=== PATIENT | female | born 1955 | race Caucasian/White ===

== ENCOUNTER 2019-04-26 13:26 | Emergency (ER) | payer OTHER ==
[~2019-04-26] VITALS: Ht 162.6 cm; Wt 74.8 kg
[~2019-04-26 13:26] MED LIST: CYAN10006 IM; GLAT20KI3 SQ; MULT-1045 PO
[2019-04-26 14:03] VITALS: BP 114/65
--- NOTE | 2019-04-26 14:04 | NUR ---
Patient discharged to home in stable conditon. Written and verbal after care instructions given. Patient verbalizes understanding of instructions.
== END 2019-04-26 14:05 | disposition home or self-care (01) ==
LOC: ER 13:27
DX: H10.33 Unspecified acute conjunctivitis, bilateral (principal); J04.0 Acute laryngitis; K21.9 Gastro-esophageal reflux disease without esophagitis; Z88.5 Allergy status to narcotic agent; Z79.899 Other long term (current) drug therapy
CPT/HCPCS: A4663

== ENCOUNTER 2019-08-02 08:11 | Emergency (ER) | payer OTHER ==
[~2019-08-02] VITALS: Ht 157.5 cm; Wt 74.8 kg
[2019-08-02 09:25] LABS: BASOPHILS # (AUTO) 0.1 K/uL (0.0-8.0); BASOPHILS % (AUTO) 1.5 % (0.0-2.0); EOSINOPHILS # (AUTO) 0.2 K/uL (0.0-0.7); EOSINOPHILS % (AUTO) 3.5 % (0.0-7.0); HEMATOCRIT 29.8 % (31.2-41.9); HEMOGLOBIN 9.4 g/dL (10.9-14.3); LYMPHOCYTES # (AUTO) 1.2 K/uL (20.0-40.0); LYMPHOCYTES % (AUTO) 19.7 % (20.5-51.5); MEAN CORPUSCULAR HEMOGLOBIN 21.6 uug (24.7-32.8); MEAN CORPUSCULAR HGB CONC 31 g/dL (32.3-35.6); MEAN CORPUSCULAR VOLUME 68.8 fL (75.5-95.3); MONOCYTES # (AUTO) 0.5 K/uL (2.0-10.0); MONOCYTES % (AUTO) 8.7 % (0.0-11.0); NEUTROPHILS % (AUTO) 66.6 % (38.5-71.5); PLATELET COUNT (AUTO) 279 K/uL (179-408); RED BLOOD CELL COUNT(AUTO) 4.33 MIL/uL (3.63-4.92)
--- NOTE | 2019-08-02 09:30 | NUR ---
pt walked out side the er, to her car, waiting for lab result to come back. aware.
[2019-08-02 09:40] LABS: CREATININE 0.6 mg/dL (0.6-1.3); POTASSIUM 3.9 mmol/L (3.5-5.1)
[2019-08-02 09:46] LABS: BILIRUBIN,TOTAL 0.3 mg/dL (0.2-1.0); TOTAL PROTEIN, SERUM 7.3 g/dL (6.4-8.2)
[2019-08-02 09:58] LABS: EOSINOPHILS % (MANUAL) 2 % (0-8); LYMPHOCYTES % (MANUAL) 14 % (20-40); MONOCYTES % (MANUAL) 9 % (2-10); NEUTROPHILS % (MANUAL) 75 % (42-75)
[2019-08-02 10:07] LABS: THYROID STIMULATING HORMONE 0.312 mIU/mL (0.358-3.740)
--- NOTE | 2019-08-02 10:13 | NUR ---
pt came back to room.
--- NOTE | 2019-08-02 10:26 | NUR ---
Patient discharged to home in stable condition. Written and verbal after care instructions given. Patient verbalizes understanding of instructions. Stressed follow up or return to ER for worsening s/s.
== END 2019-08-02 10:27 | disposition home or self-care (01) ==
LOC: ER 08:11
DX: R21 Rash and other nonspecific skin eruption (principal); D64.9 Anemia, unspecified; R94.6 Abnormal results of thyroid function studies
CPT/HCPCS: 36415; 70030-TC; 84443; 85025; A4663

== ENCOUNTER 2019-08-25 10:05 | Emergency (ER) | payer OTHER ==
[~2019-08-25] VITALS: Ht 165.1 cm; Wt 72.6 kg
--- NOTE | 2019-08-25 10:52 | NUR ---
Patient ambulated with stable gait. A/Ox4. Patient came for c/o itching and rashes on her right upper extremity for a few days now. Patient denies taking any medications prior to arrival. No s/sx of any respiratory distress or laryngeal inflammation. Denies any sob.
[2019-08-25] MEDS ORDERED: diphenhydrAMINE 25 MG CAP PO ONE ×2 (10:56→11:00)
[2019-08-25 11:22] VITALS: BP 120/69
== END 2019-08-25 10:55 | disposition home or self-care (01) ==
LOC: ER 10:05
DX: T78.49XA Other allergy, initial encounter (principal); X58.XXXA Exposure to other specified factors, initial encounter; G35 Multiple sclerosis; Z98.84 Bariatric surgery status; K21.9 Gastro-esophageal reflux disease without esophagitis; Z87.892 Personal history of anaphylaxis; Z88.6 Allergy status to analgesic agent
CPT/HCPCS: 99282; Q0163; A4663

== ENCOUNTER 2019-10-04 10:26 | Emergency (ER) | payer OTHER ==
[~2019-10-04] VITALS: Ht 152.4 cm; Wt 72.6 kg
--- NOTE | 2019-10-04 10:49 | NUR ---
DR ROCK AT BEDSIDE FOR EVAL...
--- NOTE | 2019-10-04 11:36 | NUR ---
DC, RX AND FOLLOW UP INSTRUCTIONS GIVEN AND EXPLAINED TO PATIENT WHO STATES SHE UNDERSTANDS ALL INSTRUCITONS.
== END 2019-10-04 11:37 | disposition home or self-care (01) ==
LOC: ER 10:26
DX: L03.011 Cellulitis of right finger (principal); B35.1 Tinea unguium; G35 Multiple sclerosis; Z98.84 Bariatric surgery status; K21.9 Gastro-esophageal reflux disease without esophagitis; Z79.899 Other long term (current) drug therapy
CPT/HCPCS: A4663

== ENCOUNTER 2020-10-09 22:38 | Emergency (ER) | payer MEDICARE, OTHER ==
[~2020-10-09] VITALS: Ht 162.6 cm; Wt 67.6 kg
--- NOTE | 2020-10-09 22:48 | NUR ---
pt ambulated to ER with c/o skin rash noted on face, chest and bilateral arms. pt states shes been seen by real property evaluator and prescribed medications for it. A/O x4, no SOB or labored breathing. Afebrile. Denies any CP/pressure. No GI/Gu distress.
--- NOTE | 2020-10-09 22:50 | NUR ---
Dr. Hanna at bedside, MSE in progress.
[2020-10-09] MEDS ORDERED: PRED50TA PO (22:51)
[2020-10-09] MEDS ORDERED: DEXAMETHASONE SOD PHOSPHATE 4 MG INJ IM ONE (23:00)
[2020-10-09] MEDS ORDERED: DEXAMETHASONE SOD PHOSPHATE 10 MG INJ ONE (23:00)
--- NOTE | 2020-10-09 23:14 | NUR ---
Patient discharged to home in stable condition. A/O x4, no SOB or labored breathing. Denies any pain/discomfort at this time. Written and verbal after care instructions given. Patient verbalizes understanding of instructions. Stressed follow up or return to ER for worsening s/s. Steady gait.
[2020-10-09 23:15] VITALS: BP 136/89
== END 2020-10-09 23:15 | disposition home or self-care (01) ==
LOC: ER 22:39
DX: L50.0 Allergic urticaria (principal); G35 Multiple sclerosis; K21.9 Gastro-esophageal reflux disease without esophagitis; Z98.84 Bariatric surgery status
CPT/HCPCS: 96372; 99283; J1100; A4663

== ENCOUNTER 2020-10-11 15:05 | Emergency (ER) | payer MEDICARE, OTHER ==
[~2020-10-11] VITALS: Ht 165.1 cm; Wt 68.0 kg
[~2020-10-11 15:05] MED LIST changes: +PRED50TA PO
--- NOTE | 2020-10-11 15:32 | NUR ---
at bedside for assessment
[2020-10-11] MEDS ORDERED: diphenhydrAMINE 50 MG/1 ML VIAL ONE (15:45)
[2020-10-11 16:00] LABS: HEMATOCRIT 34.3 % (31.2-41.9); MEAN CORPUSCULAR HEMOGLOBIN 25.2 uug (24.7-32.8); MEAN CORPUSCULAR VOLUME 79.4 fL (75.5-95.3); PLATELET COUNT (AUTO) 236 K/uL (179-408)
[2020-10-11 16:04] LABS: CREATININE 0.7 mg/dL (0.6-1.3); POTASSIUM 4.2 mmol/L (3.5-5.1)
[2020-10-11 16:10] LABS: BILIRUBIN,DIRECT 0.1 mg/dL (0.0-0.2); BILIRUBIN,TOTAL 0.2 mg/dL (0.2-1.0); TOTAL PROTEIN, SERUM 6.8 g/dL (6.4-8.2)
--- NOTE | 2020-10-11 17:00 | NUR ---
Patient complaints of redness and itching to skin, skin redness barely noted
--- NOTE | 2020-10-11 17:50 | NUR ---
Patient discharged to home in stable condition. No signs of acute distress noted. took al belongings. Written and verbal after care instructions given. Patient verbalizes understanding of instructions. Stressed follow up or return to ER for worsening s/s.
[2020-10-11 17:51] VITALS: BP 110/68
== END 2020-10-11 17:52 | disposition home or self-care (01) ==
LOC: ER 15:05
DX: L53.9 Erythematous condition, unspecified (principal); G35 Multiple sclerosis; Z88.5 Allergy status to narcotic agent; Z79.899 Other long term (current) drug therapy
CPT/HCPCS: 36415; 85025; A4663; J1200

== ENCOUNTER 2022-11-06 16:07 | Emergency (ER) | payer MEDICARE, OTHER ==
[~2022-11-06] VITALS: Ht 165.1 cm; Wt 68.0 kg
[~2022-11-06 16:07] MED LIST changes: -PRED50TA PO
[2022-11-06] MEDS ORDERED: PANTOPRAZOLE SODIUM IV 40 MG in IV DEXTROSE 5% 100 ML IV ONE (16:15)
[2022-11-06] MEDS ORDERED: IV NORMAL SALINE 1000 ML BAG IV ONE (16:15)
[2022-11-06] MEDS ORDERED: ONDANSETRON 4 MG/2 ML VIAL IV ONE (16:15)
[2022-11-06] MEDS ORDERED: PANTOPRAZOLE SODIUM 40 MG VIAL ONE (16:17)
[2022-11-06] MEDS ORDERED: ONDANSETRON 4 MG/2 ML VIAL ONE (16:17)
[2022-11-06 17:16] LABS: BASOPHILS # (AUTO) 0.2 K/UL (0.0-0.2); BASOPHILS % (AUTO) 2.6 % (0.0-2.0); EOSINOPHILS % (AUTO) 0.4 % (0.0-7.0); HEMOGLOBIN 11.6 g/dL (10.9-14.3); LYMPHOCYTES # (AUTO) 0.3 K/uL (0.8-4.8); LYMPHOCYTES % (AUTO) 3.6 % (20.5-51.5); MEAN CORPUSCULAR HEMOGLOBIN 25.7 uug (24.7-32.8); MEAN CORPUSCULAR HGB CONC 31 g/dL (32.3-35.6); MEAN CORPUSCULAR VOLUME 82.1 fL (75.5-95.3); MONOCYTES % (AUTO) 0.6 % (0.0-11.0); NEUTROPHILS # (AUTO) 6.7 K/uL (1.8-8.9); NEUTROPHILS % (AUTO) 92.8 % (38.5-71.5); PLATELET COUNT (AUTO) 169 K/uL (179-408); RED BLOOD CELL COUNT(AUTO) 4.51 MIL/uL (3.63-4.92); RED CELL DISTRIBUTION WIDTH 18.4 % (12.3-17.7); WHITE BLOOD COUNT (AUTO) 7.2 K/uL (3.8-11.8)
[2022-11-06 17:27] LABS: CREATININE 0.9 mg/dL (0.6-1.3); POTASSIUM 3.9 mmol/L (3.5-5.1)
[2022-11-06 17:27] LABS: *OCCULT BLOOD STOOL NEGATIVE (NEGATIVE)
[2022-11-06 17:29] LABS: DIFFERENTIAL COMMENT 1
[2022-11-06 17:33] LABS: ALBUMIN 3.5 g/dL (3.4-5.0); BILIRUBIN,DIRECT 0.1 mg/dL (0.0-0.2); BILIRUBIN,TOTAL 0.4 mg/dL (0.2-1.0); TOTAL PROTEIN, SERUM 7.2 g/dL (6.4-8.2)
[2022-11-06] MEDS ORDERED: KETOROLAC TROMETHAMINE 30 MG INJ ONE (18:28)
[2022-11-06] MEDS ORDERED: KETOROLAC TROMETHAMINE 15 MG INJ IVP ONE (18:30)
[2022-11-06] MEDS ORDERED: CEFTRIAXONE /D5W 50ML IVPB **ER PYXIS IV ONE (18:43)
[2022-11-06] MEDS ORDERED: CEFTRIAXONE 1 G in IV DEXTROSE 5% 50 ML IV ONE (18:45)
[2022-11-06] MEDS ORDERED: IBUP-1955 PO (18:48)
[2022-11-06] MEDS ORDERED: ONDA4TAB5 PO (18:48)
[2022-11-06] MEDS ORDERED: CEPH500T PO (18:48)
[2022-11-06] MEDS ORDERED: TAMS-3 PO (18:48)
[2022-11-06 18:53] LABS: *BILIRUBIN,URIN NEGATIVE (NEGATIVE); *BLOOD, URINE 1+ (NEGATIVE); *CLARITY,URINE CLEAR (CLEAR); *COLOR,URINE YELLOW (YELLOW); *KETONES,URINE NEGATIVE (NEGATIVE); *PROTEIN,URINE NEGATIVE (NEGATIVE); *UROBILINOGEN,URINE 0.2 E.U./dl (NORMAL); LEUKOCYTE ESTERASE ,URINE TRACE (NEGATIVE); NITRITE, URINE NEGATIVE (NEGATIVE); PH,URINE 7.5 (5.0-8.0); UGLUCOSE NEGATIVE (NEGATIVE)
[2022-11-06 19:13] LABS: BACTERIA,URINE NONE SEEN /HPF (NONE SEEN); SQUAMOUS EPITHELIAL CELL,UR FEW /HPF (NONE SEEN)
[2022-11-06 19:24] VITALS: BP 126/68; O2SAT 95
== END 2022-11-06 19:25 | disposition home or self-care (01) ==
LOC: ER 16:09
DX: N20.0 Calculus of kidney (principal); N13.30 Unspecified hydronephrosis; N39.0 Urinary tract infection, site not specified; R11.2 Nausea with vomiting, unspecified; K21.9 Gastro-esophageal reflux disease without esophagitis; Z88.5 Allergy status to narcotic agent; Z79.899 Other long term (current) drug therapy
CPT/HCPCS: 36415; 83605; 83690; 85025; 87040; A4663; C9113; J0696; J1885; J2405; J7040

== ENCOUNTER 2024-03-06 22:06 | Emergency (ER) | payer MEDICARE, OTHER ==
[~2024-03-06] VITALS: Ht 152.4 cm; Wt 72.6 kg
[~2024-03-06 22:06] MED LIST changes: +CEPH500T PO; +FLUT16SP16 BNOSTRILS; +IBUP-1955 PO; +ONDA4TAB5 PO; +TAMS-3 PO
[2024-03-07 00:37] VITALS: O2SAT 98
[2024-03-07] MEDS ORDERED: ACETAMINOPHEN 500 MG TABLET ONE (02:07)
[2024-03-07] MEDS: ACETAMINOPHEN 500 MG TABLET PO ONE (02:10)
== END 2024-03-07 02:40 | disposition home or self-care (01) ==
LOC: ER 22:06
DX: R05.9 Cough, unspecified (principal); B35.1 Tinea unguium; E78.5 Hyperlipidemia, unspecified; Z20.822 Contact with and (suspected) exposure to COVID-19
CPT/HCPCS: A4606; A4663; A9150